=== PATIENT | female | born 1945 | race Caucasian/White ===

== ENCOUNTER → 2018-12-29 | Outpatient (CLI) | payer MEDICARE, MEDICAID ==
[~2018-12-29] MED LIST: ACET-1757 PO; AMLO-150 PO; CARB1TAB47 PO; CLON0.5T20 PO; FENT1PAT77 TP; FLUO20CA8 PO; LACT-7 PO; LEVO50TA5 PO; LISI-170 PO; MELA3TAB2 PO; MELO15TA24 PO; MULT1TAB60 PO; OMEG-133 PO; OMEP40CA6 PO; OXYC-432 PO; POLY119P3 PO; PROP10DR2 EACHEYE; PROP1DRO6 EACHEYE; SENN-52 PO; SODI1TAB PO
[2018-12-29 13:33] LABS: ALBUMIN 3.7 g/dL (3.4-5.0); ANION GAP 3 mmol/L (5-15); CALCIUM 8.7 mg/dL (8.5-10.1); CHLORIDE 99 mmol/L (98-107)
[2018-12-29 13:37] LABS: ALANINE AMINOTRANSFERASE 13 U/L (12-78); ALKALINE PHOSPHATASE 284 U/L (45-117); BILIRUBIN,TOTAL 0.6 mg/dL (0.2-1.0); CREATININE 0.78 mg/dL (0.55-1.02); TOTAL PROTEIN 7.1 g/dL (6.4-8.2)
== END | disposition home or self-care (01) ==
LOC: STAR 11:15
PROVIDERS: ATTEND Thoracic Surgery (Cardiothoracic Vascular Surgery)
DX: Z01.818 Encounter for other preprocedural examination (principal); K44.9 Diaphragmatic hernia without obstruction or gangrene
CPT/HCPCS: 36415; 80053; 93005